=== PATIENT | male | born 1975 | race Caucasian/White ===

== ENCOUNTER 2019-03-25 10:21 | Inpatient (IN) | payer OTHER ==
[2019-03-25] MEDS ORDERED: Fentanyl 100 MCG/2 ML VIAL ONE ×3 (10:45→14:16)
[2019-03-25] MEDS ORDERED: Pantoprazole 40 MG VIAL ONE (12:10)
[2019-03-25] MEDS ORDERED: Glycopyrrolate 0.2 MG/ML 5 ML SYRINGE ONE (12:23)
[2019-03-25] MEDS ORDERED: diphenhydrAMINE 50 MG/ML VIAL ONE (12:23)
[2019-03-25] MEDS ORDERED: Succinylcholine Chloride 20 MG/ML 10 ml SYRINGE FS ONE (12:23)
[2019-03-25] MEDS ORDERED: PROPOFOL 200 MG/20 ML VIAL ONE (12:23)
[2019-03-25] MEDS ORDERED: PHENYLEPHRINE-NS 100 MCG/ML 10 ML SYRINGE ONE (12:23)
[2019-03-25] MEDS ORDERED: Rocuronium Bromide 10 MG/ML (10ML VIAL) ONE (12:23)
[2019-03-25] MEDS ORDERED: Lidocaine 2% PF 5 ML VIAL ONE (12:23)
[2019-03-25] MEDS ORDERED: Ondansetron PF 4 MG/2 ML Vial ONE (12:23)
[2019-03-25] MEDS ORDERED: Benzocaine 20% Spray 60 ML CAN ONE (13:17)
[2019-03-25] MEDS ORDERED: hydrALAZINE 20 MG/ML VIAL SLOW IVP PRN (13:34)
[2019-03-25] MEDS ORDERED: Ondansetron PF 4 MG/2 ML Vial IVP PRN ×2 (13:34→17:14)
[2019-03-25] MEDS ORDERED: Acetaminophen 1,000 MG in Premix Bag 1 BAG IVPB PRN (13:40)
[2019-03-25] MEDS ORDERED: Ondansetron HCl/PF 4 MG/2 ML Vial IVP PRN (13:44)
[2019-03-25] MEDS ORDERED: Promethazine HCl 25 MG/ML VIAL SLOW IVP PRN (13:44)
[2019-03-25] MEDS ORDERED: HYDROmorphone 2 MG/ML VIAL SLOW IVP PRN (13:44)
[2019-03-25] MEDS ORDERED: Meperidine HCl/PF 25 MG/ML VIAL SLOW IVP PRN (13:44)
--- NOTE | 2019-03-25 14:17 | RAD ---
EXAM: 2 views of the right humerus HISTORY: History of lytic lesion in the boners COMPARISON: None FINDINGS: 2 views of the right humerus shows no evidence of acute fracture or dislocation. No degener ative changes are seen. There is a lytic region in the midportion of the right humerus seen only on the internal rotation view measuring 2.7 cm in greatest dimension. No soft tissue swelling is present . IMPRESSION: Nonspecific lytic region in the midportion of the humerus
[2019-03-25] MEDS ORDERED: Sodium Chloride 0.9% (PF) 10 ML VIAL FS PRN (16:01)
[2019-03-25] MEDS: Lactated Ringer's 1,000 ML IV SCH ×2 (16:32→18:07)
[2019-03-25] MEDS ORDERED: Morphine 4 MG/ML VIAL SLOW IVP PRN (16:37)
[2019-03-25 16:41] VITALS: BMI 21.4
[2019-03-25] MEDS ORDERED: diphenhydrAMINE 50 MG/ML VIAL IM/IV PRN (17:14)
[2019-03-25] MEDS ORDERED: Zolpidem Tartrate 5 MG TAB PO PRN (17:14)
[2019-03-25] MEDS ORDERED: diphenhydrAMINE 25 MG CAP PO PRN (17:14)
[2019-03-25] MEDS ORDERED: Promethazine HCl 25 MG/ML VIAL IM PRN (17:14)
[2019-03-25] MEDS ORDERED: Naloxone HCl 0.4 mg/ml Vial IV PRN (17:14)
--- NOTE | 2019-03-25 17:18 | RAD ---
LEFT HUMERUS TWO VIEW: 03/25/19 HISTORY: Pain. COMPARISON: None. FINDINGS: There is a lytic lesion in the proximal left humeral metaphysis with cortical erosion medially. There is a large left upper lobe mass which is partially necrotic. IMPRESSION: Lytic lesion proximal left humeral metaphysis concerning for underlying metastatic disease giving the large left upper lobe mass. CT of chest may be beneficial. Code T Code LN POS: CET
[2019-03-25] MEDS: Morphine Sulfate 100 MG in Dextrose 5% in Water 98 ML IV SCH (17:58)
[2019-03-25] MEDS: Acetaminophen 1,000 MG in Premix Bag 1 BAG IVPB SCH (17:59)
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
[2019-03-25] MEDS: Enoxaparin Sodium 40 MG/0.4 ML SYRINGE SC SCH (20:22)
[2019-03-25] MEDS: Pantoprazole 40 MG VIAL IVP SCH (20:30)
--- NOTE | 2019-03-25 20:39 | OP ---
DATE OF PROCEDURE: 03/25/2019 PREOPERATIVE DIAGNOSES: Acute abdomen, left lower lobe 5-cm lytic lesion, right humeral lytic lesion, history of tobacco abuse. POSTOPERATIVE DIAGNOSES: Acute abdomen, left lower lobe 5-cm lytic lesion, right humeral lytic lesion, history of tobacco abuse. PROCEDURES PERFORMED: Exploratory laparotomy, Heineke-Mikulicz pyloroplasty, and omental patch. ANESTHESIA: General. Incisional VAC applied to be removed prior to discharge. Note; Dr. Barriga consulted intraoperatively and consent obtained from the patient's son, Edwin, for bronchoscopy intraoperative to evaluate the left lower lung lesion. DESCRIPTION OF PROCEDURE: The patient was taken to the operating room, where under general anesthesia, abdomen was clipped of hair, prepared with ChloraPrep, and draped in routine fashion. Local incision made above the umbilicus midline, carried down through the skin and subcutaneous tissue, midline fascia, and abdominal cavity sharply. There were inflammatory changes in the right upper quadrant, subhepatic. Thus, incision was extended cephalad, diagnosed a perforated proximal duodenal ulcer. Bookwalter retractor was used for exposure. Abdomen was irrigated. Perforation was identified. Post pyloric and longitudinal duodenostomy, pyloromyotomy performed, and duodenum mobilized with a Kita maneuver and visualizing vena cava and then, Heineke-Mikulicz pyloroplasty undertaken, closing the stomach transversely with continuous locking sutures of 2-0 Vicryl and outer layer with interrupted Lembert suture of 3-0 silk. Abdominal cavity was thoroughly irrigated with saline, irrigant evacuated. Hemostasis noted. Sponge and instruments counts were correct. Omental patch secured from lifting the omentum up, securing it to the pyloroplasty area with 3-0 silk interrupted sutures. Midline fascia was closed with #1 PDS. Skin and subcutaneous tissues were irrigated. Good hemostasis ensured. Skin approximated loosely with farhan. Incisional VAC applied. Dr. Moses Barriga then entered the room to perform a bronchoscopy. Job ID: [id number]
[2019-03-25] MEDS ORDERED: Pantoprazole 40 MG VIAL IVP SCH (21:00)
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
[2019-03-26] MEDS: Acetaminophen 1,000 MG in Premix Bag 1 BAG IVPB SCH ×3 (00:26→11:36)
[2019-03-26 05:40] LABS: #Lymphocytes 0.5 thou/uL (1.20-3.40); #Monocytes 0.2 thou/uL (0.11-0.59); %Basophils 0.5 % (0.0-1.0); %Eosinophils 0.5 % (0.0-10.0); %Lymphocytes 10.5 % (21.0-51.0); %Monocytes 3.2 % (0.0-10.0); %Neutrophils 85.3 % (42.0-75.0); MDiff Complete? YES; Macrocytosis SLIGHT = 6-15 cells (100X) (0-5/hpf); Mean Corpuscular HGB CONC 33.6 g/dL (32.0-36.0); Mean Corpuscular Hemoglobin 36.5 pg (27.0-31.0); Mean Platelet Volume 11.3 fL (7.4-10.4); Platelet Count 144 thou/uL (130-400); Platelet Morphology Comment Appears Adequate; RBC Distribution Width 15.6 % (11.5-14.5); Red Blood Cell (RBC) Count 2.74 mill/uL (4.70-6.10); White Blood Cell (WBC) Count 4.7 thou/uL (4.8-10.8)
[2019-03-26 05:42] LABS: ALT (SGPT) 9 U/L (8-55); AST (SGOT) 10 U/L (5-34); Albumin 2.7 g/dL (3.5-5.0); Alkaline Phosphatase 67 U/L (40-150); Anion Gap 12 mmol/L (10-20); BUN (Urea Nitrogen) 13 mg/dL (8.9-20.6); Bilirubin, Total 0.5 mg/dL (0.2-1.2); Calc. Creatinine Clearance 140 mL/min (70-130); Calcium 8.7 mg/dL (7.8-10.44); Carbon Dioxide 22 mmol/L (22-29); Chloride 106 mmol/L (98-107); Estimated GFR-MDRD Greater than 90; Globulin 2.5 g/dL (2.4-3.5); Glucose 100 mg/dL (70-105); Potassium 4.2 mmol/L (3.5-5.1); Protein, Total 5.2 g/dL (6.0-8.3); Sodium 136 mmol/L (136-145)
[2019-03-26] MEDS: Lactated Ringer's 1,000 ML IV SCH ×3 (05:45→22:46)
[2019-03-26] MEDS: Pantoprazole 40 MG VIAL IVP SCH ×2 (08:08→20:45)
--- NOTE | 2019-03-26 08:34 | OP ---
DATE OF PROCEDURE: 03/25/2019 INDICATIONS FOR PROCEDURE: Mr. Valencia is a 43-year-old male seen in the office a few days ago with a lung mass and a lytic humerus lesion. He presented with a perforated gastric ulcer. I was contacted by Dr. Mcadams to consider bronchoscopy because of a lung mass. The patient was already sedated at the end of the surgical procedure. DESCRIPTION OF PROCEDURE: Bronchoscope was introduced into the endotracheal tube. Consent had been obtained from the son by Dr. Mcadams prior to the procedure. The right lower lobe, right middle lobe, right upper lobe, left lower lobe, and left upper lobe were all well visualized. No endobronchial lesions were seen. Multiple segments of left lower lobe in the lingula were brushed. Orthopedic fluoroscopy has notoriously not been adequate for visualizing lung masses, especially when they are cavitary, so no fluoro was done. He tolerated the procedure well. One of his lateral segments in his left lower lobe revealed significant amount of bleeding that stopped quickly. This would lead me to believe that maybe the brush got into the lesion. The patient tolerated the procedure well. He was transferred to recovery room in stable condition. IMPRESSION: Metastatic lung cancer, likely stage IV. Hopefully, we can get his tissue diagnosis from the brushings, but may require additional procedures. Job ID: [id number]
[2019-03-26] MEDS ORDERED: Gadobenate Dimeglumine 529 MG/1 ML (20ML VIAL) ONE (10:30)
[2019-03-26] MEDS ORDERED: Morphine 2 MG/ML SYRINGE SLOW IVP SCH (11:15)
--- NOTE | 2019-03-26 12:29 | PRG ---
DATE OF SERVICE: 03/26/2019 SUBJECTIVE: Khang Valencia is in no distress. He is complaining of abdominal discomfort as expected. OBJECTIVE: VITAL SIGNS: He is afebrile. Heart rate 60, respiratory rate 16, oximetry is 94. LUNGS: Clear. HEART: Regular rhythm. ABDOMEN: Soft. IMPRESSION: 5 cm lung mass, status post bronchoscopy with no endobronchial lesions being identified. Brushings did elicit bleeding. One of his lateral segments was lower lobe, so hopefully we will have pathological results. They tell us what cell type. If we do not obtain a tissue diagnosis, then we will have to decide whether or not he needs a surgical procedure on his humerus or a tissue could probably be attained or a CT-guided biopsy of the wall of this cavitary lung mass. I have recommended a magnetic resonance imaging of his brain while he is down for an MRI of his humerus. I have also recommended a bone scan to make sure we are not missing any other possible bony metastatic disease. It may be a problem in the near future. I did explain to him likely that he has a lung malignancy that has spread to bone. Left away after tissue diagnosis. Job ID: [id number] [facility]
--- NOTE | 2019-03-26 15:26 | PRG ---
DATE OF SERVICE: 03/26/2019 SUBJECTIVE: Khang Valencia is a 43-year-old male patient, 1-day status post pyloroplasty, closure of perforated duodenal ulcer. The patient is doing well. His pain is well controlled with a CORK INSULATION SETTER pump. He is hoping to have his NG tube removed. Since the NG tube was placed in proper position, the patient has only had 70 mL out of his NG tube overnight. This morning, his white count is 4, hemoglobin 10. Basic metabolic profile normal. He is urinating well on his own. OBJECTIVE: LUNGS: Clear to auscultation. CARDIAC: Regular rate and rhythm. No murmur or gallop. ABDOMEN: Soft. He has an incisional wound VAC and his wound is closed with farhan. The plan is to remove the incision wound VAC prior to going home. The patient reports today that he was taking 20 to 25 Advil in 36-hour period because of shoulder pain from a shoulder injury. This hospitalization, Orthopedics have seen him regarding lytic lesions in both of his humeri, but these are not impending pathological and intervention is not warranted. The bronchoscopy that Dr. Barriga did yesterday reveals nonmalignant findings. I have discussed with Dr. Barriga and the patient will need a CT-guided left lung biopsy. We will plan that next week. ASSESSMENT AND PLAN: 1. Perforated duodenal ulcer. I have advised him to avoid NSAIDs. We will treat him with PPIs parenterally. We will remove his NG tube. He will stay n.p.o., taking ice chips only sparingly until GI function returns. I would advance him to clear liquids when there is evidence of GI function. 2. Left lower lobe lung mass 5 cm lytic with lytic lesions in both left and right humeri. Orthopedics have seen him and intervention is not warranted to prevent fracture. Bronchoscopy washings were negative. Plan for CT-guided left lung biopsy next week. 3. Tobacco abuse. Job ID: [id number]
--- NOTE | 2019-03-26 16:59 | NM ---
EXAM: NM Bone Scan STANDARD PROVIDED CLINICAL HISTORY: Lytic lesions on radiographs COMPARISON: Radiographs dated 03/25/2019 FINDINGS: 31.9 mCi technetium 99m labeled MDP was given intravenously. Three-hour delayed whole body planar ant erior and posterior imaging was performed in addition to additional anterior and posterior planar imaging of the thorax and humeri. There is abnormal increased radiotracer uptake seen within the left proximal and mid femur in the reg ion of the lytic change demonstrated on prior radiograph. There is increased radiotracer uptake seen within the right mid humeral diaphyseal region in the region of the lytic change described on pr ior radiograph. There is somewhat generalized increased radiotracer uptake involving the sternum, appearing mildly in homogeneous. There is radiotracer uptake seen involving both acromial clavicular joint regions. This is nonspecific. No additional abnormal radiotracer uptake is identified. IMPRESSION: 1. Abnormal radiotracer uptake within the areas of lytic change demonstrated on recent radiographs, c ompatible with an aggressive process such as metastatic disease or infection. 2. Sternal and acromioclavicular uptake are nonspecific but may also reflect bone lesions. Consider c hest CT correlation.
--- NOTE | 2019-03-26 18:38 | MRI ---
EXAM: MRI of the brain without and with contrast HISTORY: Lung mass and multiple lytic lesions. Evaluate for intracranial metastatic disease. COMPARISON: None TECHNIQUE: Multiplanar multisequence MR images were obtained of the brain without and with IV contras t. FINDINGS: The brain demonstrates normal signal intensity on all obtained sequences. No restricted diffusion. No abnormal enhancement. No hydronephrosis. No extra-axial fluid collection or intracranial hemorrhage. The expected flow voids are present. Corpus callosum, pituitary, and craniocervical junction are within normal limits. The calvarium and overlying soft tissues are unremarkable. A mucus retention cyst is seen in the left maxillary sinus. The other paranasal sinuses and mastoid air cells are well aerated. IMPRESSION: No evidence of acute intracranial abnormality.
[2019-03-26] MEDS: Piperacillin/Tazobactam 4.5 GM in Sodium Chloride 0.9% 100 ML IVPB SCH (18:44)
--- NOTE | 2019-03-26 18:48 | MRI ---
MRI LEFT HUMERUS WITH AND WITHOUT IV CONTRAST: 03/26/19 PROVIDED CLINICAL HISTORY: Left shoulder and arm pain, multiple lytic lesions. FINDINGS: There is mass-like abnormal signal present within the left proximal humeral metadiaphyseal region. Th is is comprised of diminished T1 signal intensity with respect to skeletal muscle, increased signal i ntensity on fluid sensitive sequences with respect to skeletal muscle and fairly diffuse contrast enh ancement. There is a central ovoid somewhat circumscribed area within this extensive abnormal medulla ry signal that measures about 5.7 cm in greatest craniocaudal dimension and entirely replaces the med ullary bone, producing scalloping of the endosteum without evidence for cortical breakthrough. There is conspicuous surrounding soft tissue edema and enhancement that does not appear mass-like. There is a central nonenhancing portion to this ovoid more focal signal abnormality. There is an approximately 2.2 cm rim enhancing fluid collection within the posterior deltoid muscle a ssociated with probable lytic change involving the adjacent acromion. There is reactive marrow edema seen within the acromion. There is patchy signal alteration on fluid sensitive sequences within the anterior deltoid muscle dis tally as well as within the posterior deltoid adjacent to the rim enhancing fluid collection. There is a small glenohumeral joint effusion without evidence for synovial enhancement. The acromiocl avicular joint appears unremarkable. There is a partially visualized thick walled cavitary mass present within the left lung, incompletely characterized on the basis of this study. IMPRESSION: 1. Prominent signal alteration involving the left proximal humeral metadiaphyseal region, the MR features of which are suggestive of an infectious process. There is also a separate fluid collection within the posterior deltoid muscle adjacent to the acromion suggesting an abscess. There are patchy foci of signal alteration within the deltoid musculature suggesting infectious myositis. The imaging appearance is atypical for metastatic disease. 2. Thick walled left lung cavitary mass incompletely visualized and incompletely evaluated. Livan mmend CT correlation. POS: CHRISTINE
[2019-03-26] MEDS: Enoxaparin Sodium 40 MG/0.4 ML SYRINGE SC SCH (20:45)
[2019-03-27] MEDS: Piperacillin/Tazobactam 4.5 GM in Sodium Chloride 0.9% 100 ML IVPB SCH ×5 (00:17→23:38)
--- NOTE | 2019-03-27 02:20 | PRG ---
DATE OF SERVICE: 03/27/2019 SUBJECTIVE: Mr. Valencia is a 43-year-old male who is postop day 1, status post pyloroplasty, closure of perforated duodenal ulcer. The patient reports doing good. Pain is well controlled with FIREWALL ADMINISTRATOR pump. NG tube was removed. The patient report no nausea or vomiting, even though he reports having a lot of burping. He is tolerating ice chips. He mobilizes well around the floor. He had some imaging studies this evening regarding to his mass on his lung. He is lying down in bed comfortably with no acute distress. He also had a bronchoscopy with Dr. Barriga and revealed nonmalignant findings. OBJECTIVE: VITAL SIGNS: Stable. LUNGS: Clear bilaterally. HEART: Regular rate and rhythm. ABDOMEN: Soft, nondistended, asymmetric, postop pain. EXTREMITIES: He also has frozen shoulder bilaterally in which Orthopedic seen him and we will plan to do lytic lesion in the future. Left shoulder pain, tender to touch with limited range of motion due to pain. EXTREMITIES: Neurovascular intact x4. NEUROLOGIC: No focal neurology deficits. PLAN: Continue supportive care. Continue bowel rest. The patient is to continue IV fluids and FIREWALL ADMINISTRATOR for pain. DVT gastritis prophylaxis. Continue working with PT/OT. Encourage walking for bowel return and function. Advance the patient's diet when bowel function return. Job ID: [id number]
[2019-03-27] MEDS: Lactated Ringer's 1,000 ML IV SCH ×2 (05:26→13:50)
[2019-03-27] MEDS: Pantoprazole 40 MG VIAL IVP SCH ×2 (08:21→20:02)
--- NOTE | 2019-03-27 11:51 | PRG ---
DATE OF SERVICE: 03/27/2019 SUBJECTIVE: He is awake and alert. No complaints. PHYSICAL EXAMINATION: VITAL SIGNS: Temperature 98.5, pulse 70, respirations 16, O2 saturation 95% on room air, blood pressure 112/75. HEENT: Unremarkable. NECK: No adenopathy or JVD. LUNGS: Soft wheezing bilaterally. CARDIAC: S1 and S2. Regular. ABDOMEN: Soft. EXTREMITIES: No edema. ASSESSMENT: 1. Lung mass. 2. Chronic obstructive pulmonary disease. PLAN: Awaiting tissue. Continue nebulization treatments and oxygen. Job ID: [id number]
--- NOTE | 2019-03-27 15:55 | PRG ---
DATE OF SERVICE: 03/27/2019 SUBJECTIVE: The patient is currently on the surgical floor. He is postop day #1, status post pyloroplasty and closure of perforated duodenal ulcer. The patient remains n.p.o. His pain is being controlled with a HOME DECORATOR pump. He denies nausea or vomiting. He did have his NG tube removed yesterday, but the plan is for him to be allowed liquids at the earliest tomorrow, but more likely on Friday per his primary surgeon's plan. OBJECTIVE: VITAL SIGNS: Temperature is 98.5, heart rate 70, blood pressure 110/75, respirations 16, and oxygen saturation 93% on room air. GENERAL: The patient is resting comfortably in bed. He is awake, alert, and oriented x3. HEENT: Unremarkable. LUNGS: Clear to auscultation with good inspiratory and expiratory effort. The patient did have some expiratory wheezing intermittently. ABDOMEN: Soft, flat, nontender with no active bowel sounds at this time. LABORATORY AND DIAGNOSTIC DATA: There are no labs or radiographs reviewed this morning. ASSESSMENT: Status post exploratory laparotomy, pyloroplasty, and omental patch. PLAN: Plan will be to continue n.p.o. status until bowel function returns. Pain management with HOME DECORATOR. Encourage out of bed and ambulation, pulmonary toilet, gastritis and mechanical VTE prophylaxis. The patient was evaluated this morning with Dr. Alberto. Job ID: [id number]
[2019-03-27] MEDS: Enoxaparin Sodium 40 MG/0.4 ML SYRINGE SC SCH (20:02)
[2019-03-27] MEDS: Morphine Sulfate 100 MG in Dextrose 5% in Water 98 ML IV SCH (23:54)
[2019-03-28] MEDS: Lactated Ringer's 1,000 ML IV SCH ×4 (00:35→21:23)
--- NOTE | 2019-03-28 00:48 | PRG ---
DATE OF SERVICE: 03/28/2019 SUBJECTIVE: Mr. Valencia is a 43-year-old male postoperative day #1 status post pyloroplasty and closure of perforation of duodenal ulcer. The patient remained n.p.o. Pain control with E COMMERCE WEB DEVELOPER pump. Pain is well controlled. Denies nausea or vomiting. He denies having gas or bowel movement. He developed no fever or shortness of breath. OBJECTIVE: GENERAL: The patient is lying down in bed, comfortable with no acute distress. VITAL SIGNS: Stable. HEART: Regular rate and rhythm. LUNGS: Clear bilaterally. ABDOMEN: Soft, nondistended with scattered bowel sounds. PLAN: Will be to continue n.p.o. with E COMMERCE WEB DEVELOPER pain medication. Continue supportive care. Continue deep venous thrombosis and gastritis prophylaxis. We will await for his bowel function to normalize. Job ID: [id number]
[2019-03-28] MEDS: Piperacillin/Tazobactam 4.5 GM in Sodium Chloride 0.9% 100 ML IVPB SCH ×3 (05:06→17:23)
[2019-03-28] MEDS: Pantoprazole 40 MG VIAL IVP SCH ×2 (08:09→21:32)
[2019-03-28] MEDS ORDERED: CEFAZOLIN 2 GM in Premix Bag 1 BAG IVPB SCH (09:30)
--- NOTE | 2019-03-28 12:33 | PRG ---
DATE OF SERVICE: 03/28/2019 SUBJECTIVE: He seems to be doing well. He had no acute complaints. OBJECTIVE: VITAL SIGNS: Temperature 99.4, pulse 64, respirations 16, O2 saturation 95%, and blood pressure 115/74. HEENT: Unremarkable. NECK: No adenopathy or JVD. LUNGS: Clear. CARDIAC: S1 and S2 regular. ABDOMEN: Soft, nontender. Normoactive bowel sounds. EXTREMITIES: No edema. ASSESSMENT: Lung mass. PLAN: Await biopsy results. Job ID: [id number]
--- NOTE | 2019-03-28 16:55 | PRG ---
DATE OF SERVICE: 03/28/2019 SUBJECTIVE: The patient is currently on the surgical floor. He is postop day #2, status post pyloroplasty and closure of perforated duodenal ulcer. The patient remains n.p.o. His pain is being controlled with a VICE PRESIDENT OF TALENT MANAGEMENT pump. He denies nausea or vomiting. He has been out of bed once. He is of note awaiting to undergo bone biopsy of left proximal humerus tomorrow and likely biopsy of lung mass. So the patient will remain n.p.o. for this purpose in addition to his postoperative ileus. OBJECTIVE: VITAL SIGNS: Temperature is 99.2, heart rate 69, blood pressure 106/72, respirations 16, and oxygen saturation is 96% on room air. GENERAL: The patient is resting comfortably in bed. He is awake, alert, and oriented x3. HEENT: Unremarkable. LUNGS: Clear to auscultation with scant bilateral wheezes. HEART: Regular rate and rhythm. ABDOMEN: Soft, flat, nontender without bowel sounds at this time. LABORATORY AND DIAGNOSTIC DATA: There are no labs or radiographs reviewed this morning. ASSESSMENT: Status post exploratory laparotomy, pyloroplasty and omental patch. PLAN: Plan will be to continue n.p.o. status due to his ileus and schedule procedure for tomorrow. We will continue pain management with VICE PRESIDENT OF TALENT MANAGEMENT. Encourage out of bed, ambulation, and other supportive care per the primary and other services. Job ID: [id number]
[2019-03-28] MEDS: Enoxaparin Sodium 40 MG/0.4 ML SYRINGE SC SCH (21:30)
[2019-03-29] MEDS: Piperacillin/Tazobactam 4.5 GM in Sodium Chloride 0.9% 100 ML IVPB SCH ×5 (00:19→23:08)
--- NOTE | 2019-03-29 01:16 | PRG ---
DATE OF SERVICE: 03/29/2019 SUBJECTIVE: Mr. Valencia is a 43-year-old male, who is postop day 2, status post pyeroplasty and closure of perforated duodenal ulcer. The patient remained n.p.o. and pain control, GEODETIC COMPUTATOR pump. He denied nausea or vomiting. He denied any gas or bowel movement. PHYSICAL EXAMINATION: VITAL SIGNS: Stable. GENERAL: The patient is lying down in bed, comfortable with no acute distress. LUNGS: Clear bilaterally. HEART: Regular rate and rhythm. ABDOMEN: Soft, nondistended, and no bowel sounds present. PLAN: Will be continue n.p.o. due to his ileus and schedule procedure for tomorrow regard to his lung mass. He will continue pain management with GEODETIC COMPUTATOR. Job ID: [id number]
[2019-03-29 05:41] LABS: #Lymphocytes 0.4 thou/uL (1.20-3.40); #Monocytes 0.3 thou/uL (0.11-0.59); #Neutrophils 3.8 thou/uL (1.40-6.50); %Eosinophils 0.7 % (0.0-10.0); %Lymphocytes 9.4 % (21.0-51.0); %Monocytes 7.2 % (0.0-10.0); %Neutrophils 82.7 % (42.0-75.0); Hemoglobin 8.8 g/dL (14.0-18.0); Mean Corpuscular HGB CONC 32.7 g/dL (32.0-36.0); Mean Corpuscular Hemoglobin 34.7 pg (27.0-31.0); Platelet Count 147 thou/uL (130-400); RBC Distribution Width 15.5 % (11.5-14.5); Red Blood Cell (RBC) Count 2.52 mill/uL (4.70-6.10); White Blood Cell (WBC) Count 4.6 thou/uL (4.8-10.8)
[2019-03-29 05:46] LABS: INR-International Normal Ratio 1.2; Prothrombin Time 14.8 SEC (12.0-14.7)
[2019-03-29 05:56] LABS: Anion Gap 13 mmol/L (10-20); BUN (Urea Nitrogen) 9 mg/dL (8.9-20.6); Calc. Creatinine Clearance 134 mL/min (70-130); Calcium 8.8 mg/dL (7.8-10.44); Carbon Dioxide 24 mmol/L (22-29); Chloride 99 mmol/L (98-107); Estimated GFR-MDRD Greater than 90; Glucose 83 mg/dL (70-105); Potassium 3.6 mmol/L (3.5-5.1); Sodium 132 mmol/L (136-145)
[2019-03-29] MEDS: Lactated Ringer's 1,000 ML IV SCH ×3 (06:36→21:57)
[2019-03-29] MEDS: Pantoprazole 40 MG VIAL IVP SCH ×2 (07:55→21:53)
[2019-03-29] MEDS: Morphine Sulfate 100 MG in Dextrose 5% in Water 98 ML IV SCH (09:09)
--- NOTE | 2019-03-29 11:42 | PRG ---
DATE OF SERVICE: 03/29/2019 SUBJECTIVE: Khang Valencia is doing well today. He has tolerated his NG tube out last 3 days. He has not had any nausea or vomiting. However, he has had belching. He has not experienced a bowel movement or passed flatus. Today, Orthopedics is planning ORIF of his left humerus due to impending pathological fracture from metastatic lung cancer most likely. Await tissue diagnosis. His CT-guided biopsy of lung was canceled. OBJECTIVE: VITAL SIGNS: 99 degrees, 82, and 109/67. LUNGS: Clear to auscultation. CARDIAC: Regular rate and rhythm without murmur or gallop. ABDOMEN: Soft and nontender. Incisional wound VAC in place, will be removed tomorrow. EXTREMITIES: Unremarkable. LABORATORY DATA: White count 4.6 and hemoglobin 8.8. Basic metabolic profile unremarkable. ASSESSMENT AND PLAN: 1. Anemia, medical and mostly. Continue to observe. No transfusion is necessary. 2. Lung metastases to both humerus. Open reduction and internal fixation left humerus to prevent fracture. Oncology consultation once tissue diagnosis obtained. 3. Tobacco use. 4. Left lower lobe lung mass 5 cm lytic lesion. 5. Bilateral humeral lytic lesions. Job ID: [id number]
[2019-03-29] MEDS ORDERED: Bupivacaine PF 0.5% 30 ML VIAL ONE (12:26)
[2019-03-29] MEDS ORDERED: Fentanyl 100 MCG/2 ML VIAL ONE ×3 (12:57→15:01)
[2019-03-29] MEDS ORDERED: Rocuronium Bromide 10 MG/ML (10ML VIAL) ONE (13:45)
[2019-03-29] MEDS ORDERED: Lidocaine 1% PF 5 ML VIAL ONE (13:45)
[2019-03-29] MEDS ORDERED: PROPOFOL 200 MG/20 ML VIAL ONE (13:45)
[2019-03-29] MEDS ORDERED: Meperidine HCl/PF 25 MG/ML VIAL ONE (14:28)
[2019-03-29] MEDS ORDERED: PACU-Morphine 4MG/ML VIAL SLOW IVP PRN (14:50)
[2019-03-29] MEDS ORDERED: Promethazine HCl 25 MG/ML VIAL IM PRN (14:50)
[2019-03-29] MEDS ORDERED: Promethazine HCl 25 MG/ML VIAL SLOW IVP PRN (14:50)
[2019-03-29] MEDS ORDERED: Ondansetron HCl/PF 4 MG/2 ML Vial IVP PRN (14:50)
[2019-03-29] MEDS ORDERED: Morphine 2 MG/ML SYRINGE ONE ×4 (15:13→16:35)
--- NOTE | 2019-03-29 16:10 | RAD ---
LEFT HUMERUS TWO VIEWS: HISTORY: ORIF. COMPARISON: None. FINDINGS: Satisfactory appearance of intramedullary nail placement through the left femur. IMPRESSION: Satisfactory postoperative appearance. POS: CET
[2019-03-29] MEDS: Enoxaparin Sodium 40 MG/0.4 ML SYRINGE SC SCH (21:53)
[2019-03-29] MEDS: CEFAZOLIN 2 GM in Premix Bag 1 BAG IVPB SCH (21:57)
[2019-03-30] MEDS: Morphine Sulfate 100 MG in Dextrose 5% in Water 98 ML IV SCH ×2 (04:16→16:07)
[2019-03-30] MEDS: Piperacillin/Tazobactam 4.5 GM in Sodium Chloride 0.9% 100 ML IVPB SCH ×4 (05:37→23:13)
[2019-03-30] MEDS: Lactated Ringer's 1,000 ML IV SCH ×4 (05:42→20:45)
[2019-03-30] MEDS: CEFAZOLIN 2 GM in Premix Bag 1 BAG IVPB SCH ×2 (06:34→14:02)
[2019-03-30] MEDS: Pantoprazole 40 MG VIAL IVP SCH ×2 (08:31→20:09)
--- NOTE | 2019-03-30 10:37 | PRG ---
DATE OF SERVICE: 03/30/2019 SUBJECTIVE: Mr. Valencia is doing well today. He underwent ORIF of his left humerus for impending fracture pathological from metastasis. Orthopedics tells me that an immediate interpretation of the specimen yesterday suggested squamous cell carcinoma. He has left lower lobe lytic lesion [address] Barriga is following for this. His bronchoscopy washings were negative. Today, he is belching, but not passing any flatus or stool. OBJECTIVE: VITAL SIGNS: 98.2 degrees, 69, and 139/89. LUNGS: Clear to auscultation. CARDIAC: Regular rate and rhythm without murmur or gallop. ABDOMEN: Soft, flat, and nondistended. Wound looks good. His incisional VAC was removed. His wound looks very good. There is no indication for infection. EXTREMITIES: Unremarkable. LABORATORY DATA: This morning, there is no laboratories obtained. ASSESSMENT AND PLAN: 1. Perforated duodenal ulcer. Await bowel function. Continue IV fluids. 2. Left lower lobe lung mass, probably squamous cell carcinoma by an immediate interpretation, but final pathology pending. Metastases to both humerus status post open reduction and internal fixation of left humerus for impending pathological fracture, Dr. Michelle. Mobility per him. 3. Await gastrointestinal function prior to advancing diet. Continue liquids. 4. Await Oncology opinion. If he needs MediPort that could be placed tomorrow in this hospitalization nor could wait till another time. We will discuss with Oncology at their opinion. MRI scan of the brain is negative for metastasis. Bone scan results noted. Job ID: [id number]
[2019-03-30] MEDS: Enoxaparin Sodium 40 MG/0.4 ML SYRINGE SC SCH (20:08)
--- NOTE | 2019-03-30 21:08 | OP ---
DATE OF PROCEDURE: 03/29/2019 PREOPERATIVE DIAGNOSIS: Left proximal humerus pathologic fracture. POSTOPERATIVE DIAGNOSIS: Left proximal humerus pathologic fracture. PROCEDURES PERFORMED: 1. Intramedullary nail stabilization of left humerus. 2. Biopsy of left proximal humerus lytic lesion. ANESTHESIA: General. BARREL MARKER: Brynn Deluca PA-C ESTIMATED BLOOD LOSS: 50 mL. IMPLANTS: Synthes system was used with a 7 x 240 mm humeral nail with two cross-lock screws. COMPLICATIONS: None. DRAINS: None. SPECIMEN: Marrow cavity sampling of lytic lesion from left humerus sent to Pathology for both frozen and permanent sections. INDICATIONS: Mr. Valencia is a 43-year-old gentleman, who two months ago injured the left arm with relatively minor trauma. He has had on again and off again pain at the left shoulder and left upper humerus over the last two months. The patient was taking large quantities of ibuprofen and eventually developed bleeding ulcer. He was admitted and his part of the workup was found to have a lesion on his chest x-ray, as well as a lytic lesion of the left proximal humerus and lytic lesion of the midshaft diaphysis of the right humerus. The patient now scheduled for stabilization of this impending pathologic fracture of the left humerus, as well as biopsy of the lytic lesion in hopes of obtaining a definitive diagnosis regarding this bone lesion as well as its potential connection to his long tumor. Informed consent has been obtained. I believe all questions answered. DESCRIPTION OF PROCEDURE: The patient was brought to the operating room and a time-out performed followed by induction of general anesthesia. Next, he was positioned in a semi-beach chair position. Then, a sterile prep and drape was performed of left upper extremity. Next, a lateral incision was made just posterior to the bicipital groove. After skin was sharply incised, dissection was carried down bluntly through the deltoid musculature. A small portion of the subdeltoid bursa was excised exposing the underlying supraspinatus tendon as it inserted on the greater tuberosity. This structure was incised in line with its fibers exposing the tuberosity and then blunt dissection carried down to the base of the tuberosity at the margin of the articular surface. A threaded guidewire was then inserted at the starting point and then the starting reamer passed over the guidewire to further open the proximal humerus for nail placement. Next, under C-arm guidance, a pituitary rongeur was passed down the starting point to the level of the lytic lesion of the proximal humerus. Multiple samples were removed from this site that showed a white tissue not consistent with marrow fat or any normal osseous structure. Multiple samples were removed and then once felt to be an acceptable sample size, this was sent to Pathology for frozen section to confirm appropriate sampling as well as permanent sections for hopeful diagnosis. Next, the shoulder was thoroughly lavaged with normal saline and then a 7 x 240 mm nail was passed down the shaft of the humerus. This was then cross locked proximally initially with two screws. However, the proximal most of these two screws was found to have very marginal bone purchase and this was subsequently removed. Additional incision was made anterior at the distal upper arm. Blunt dissection carried down to the humerus and then freehand technique was used to cross lock the nail. At the completion of this, the nail was found to be of appropriate length and position with proximal and distal cross-lock screw appropriately positioned. The wounds again irrigated with bulb syringe and then closed in layers proximally with 0 Vicryl for the supraspinatus and deltoid fascia 2-0 Vicryl subcutaneously and farhan for the skin. [place] were used for the distal cross-lock screw site. Xeroform gauze and tape dressing was then applied to the arm. The patient was placed in a sling and transferred to recovery room in stable condition. There were no complications. The patient tolerated the procedure well. Job ID: [id number]
--- NOTE | 2019-03-30 21:49 | CON ---
DATE OF CONSULTATION: REASON FOR CONSULTATION: Metastatic disease. HISTORY OF PRESENT ILLNESS: Mr. Valencia is a 43-year-old male, who presented to the emergency room with acute onset of abdominal pain. He had free intraabdominal air and was taken to surgery by Dr. Mcadams. He was noted to have a perforated ulcer. He underwent exploratory laparotomy with pyloroplasty. The patient had been diagnosed with a 5 cm left lower lung lesion approximately 2 weeks prior, was seen by Dr. Barriga, scheduled for an outpatient PET. During his exploratory laparotomy, Dr. Barriga performed a bronchoscopy. Unfortunately, pathology was negative. The patient also had a left upper extremity pain. He underwent imaging of his left shoulder. There was a 2.2 cm area consistent with a lytic lesion. He underwent prophylactic nailing. His pain is currently controlled, and he is slowly having his diet advanced. We were asked to see the patient regarding diagnosis. The patient states he has lost 40 pounds over the past year and a half, but none in the last 2 to 3 months. His weight loss is due to a change in appetite and working outside. PAST MEDICAL HISTORY: None. PAST SURGICAL HISTORY: None. ALLERGIES: NO KNOWN DRUG ALLERGIES. HOME MEDICATIONS: Nonsteroidals. FAMILY HISTORY: Grandfather and aunt had lung cancer. SOCIAL HISTORY: He is , has 5 grown children. A 10 pack-year history of smoking. No alcohol use. No illicit drug use. REVIEW OF SYSTEMS: GENERAL: No fever, chills, or night sweats. EYES: No blurred or double vision. ENT: No pain hoarseness, sore throat,or dysphagia. CV: No chest pain, palpitations, or syncope. RESPIRATORY: No shortness of breath, dyspnea on exertion, or orthopnea. GI: No nausea, vomiting, diarrhea, or constipation. Positive for abdominal pain. : No dysuria or hematuria. MUSCULOSKELETAL: Positive for shoulder pain. SKIN: No rash or pruritus. HEMATOLOGIC: No bruising, bleeding, or clotting. NEUROLOGIC: No headache, numbness, tingling, or seizure activity. PSYCHIATRIC: No anxiety or depression. PHYSICAL EXAMINATION: VITAL SIGNS: Temperature is 98.4, pulse is 79, respiratory rate 20, blood pressure is 143/76. He is 97% on room air. GENERAL: This is a well-developed, well-nourished male, in no acute distress. HEENT: Normocephalic and atraumatic. Pupils are equal and reactive to light. NECK: Supple. CV: Regular rate and rhythm. LUNGS: Clear anterior. ABDOMEN: Soft and nontender. Bowel sounds are positive. EXTREMITIES: He has a dressing to his left shoulder. There is no edema. SKIN: No rash. HEMATOLOGIC: No petechiae or purpura. NEUROLOGIC: Nonfocal. PSYCHIATRIC: He is alert, oriented, and appropriate. PERTINENT LABORATORY DATA AND X-RAYS: Current WBCs 4.6, hemoglobin 8.8, hematocrit 26.8, platelet count is 147,000, 82% neutrophils, 9% lymphocytes. PT is 14.8, INR is 1.2. Sodium 132, potassium 3.6, chloride 99, CO2 is 24, BUN is 9, creatinine 0.67, glucose 83, calcium 8.8, bilirubin 0.5. AST is 10, ALT is 9, alkaline phosphatase is 67. Serum total protein 5.7, albumin 2.7, and globulin 2.5. Brain MRI showed no evidence of metastatic disease. Bone scan showed lesion in the left proximal and mid femur, right mid humeral diaphyseal region. ASSESSMENT: Metastatic lung cancer, possibly squamous cell carcinoma with bone lesions. DISCUSSION: The patient is a candidate for chemotherapy. He may need a MediPort placed once final path is seen. We will send off tissue for mutational studies. Case has been discussed with Dr. Knight. Thank you for the consult on this unfortunate gentleman. Job ID: [id number]
[2019-03-31] MEDS: Piperacillin/Tazobactam 4.5 GM in Sodium Chloride 0.9% 100 ML IVPB SCH ×5 (06:03→20:41)
[2019-03-31] MEDS: Lactated Ringer's 1,000 ML IV SCH ×3 (06:03→16:43)
[2019-03-31] MEDS: Morphine Sulfate 100 MG in Dextrose 5% in Water 98 ML IV SCH ×2 (08:46→23:03)
[2019-03-31] MEDS: Pantoprazole 40 MG VIAL IVP SCH ×2 (08:59→20:40)
[2019-03-31 09:11] LABS: Fungus Stain Final report (.)
[2019-03-31] MEDS ORDERED: MD-Gastroview 120 ML BOT ONE (11:23)
--- NOTE | 2019-03-31 17:05 | PRG ---
DATE OF SERVICE: 03/31/2019 SUBJECTIVE: Khang Valencia is doing well today. OBJECTIVE: VITAL SIGNS: Temperature 98.8 degrees, pulse 78, and blood pressure 152/91. LUNGS: Clear to auscultation. CARDIAC: Regular rate and rhythm without murmur or gallop. ABDOMEN: Soft and nontender. Wound looks good. EXTREMITIES: Unremarkable. LABORATORY DATA: None. The patient had ordered an upper GI small-bowel follow-through and assess gastric emptying. Today, he has passed a small amount of flatus. He did have upper GI and there was delayed emptying. After 1-1/2 hours and him rotating to his right side, he did have contrast progress into the duodenum. 3-hour film shows some stagnant contrast in stomach, but it does progress in the GI tract further. ASSESSMENT AND PLAN: 1. Status post perforated ulcer. Gastric emptying is delayed. We will start him on Reglan IV. Start clear liquids as I feel we need to go slow. We will avoid carbonated beverages. He has good mobility level. Await better GI emptying. Advance diet slowly. 2. 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 Oncology has seen him. He may need a MediPort in the future. Job ID: [id number]
--- NOTE | 2019-03-31 18:06 | RAD ---
Small bowel series: HISTORY: 43-year-old male with abdominal pain. No bowel movement.: FINDINGS: Nursing Specialist view demonstrates midline skin farhan. Large amount of bowel gas throughout nondilated transve rse colon, splenic flexure, and descending colon. No evidence of small bowel dilation. Oral contrast material, presumably Gastrografin, is seen in the stomach, and only reaches the second stage of the duodenum in one hour. At 1.5 hours, it has reached several jejunal loops in the left upper quadrant. Slow progress at 3 hours. At 5 hours, the contrast fills the ascending colon. IMPRESSION: 1. No small bowel obstruction. 2. Probable postoperative ileus.
[2019-03-31] MEDS: Enoxaparin Sodium 40 MG/0.4 ML SYRINGE SC SCH (20:40)
[2019-04-01] MEDS: Lactated Ringer's 1,000 ML IV SCH (04:35)
[2019-04-01] MEDS: Piperacillin/Tazobactam 4.5 GM in Sodium Chloride 0.9% 100 ML IVPB SCH ×2 (04:35→09:41)
[2019-04-01] MEDS: Acetaminophen/Codeine 30-300mg Tablet PO SCH ×2 (09:00→13:12)
--- NOTE | 2019-04-01 09:06 | RAD ---
XR Abdomen 2 View HISTORY: Abdominal pain. History of duodenal ulcer repair. Follow-up with small bowel follow-through performed yesterday. COMPARISON: None. FINDINGS: The bowel gas pattern appears nonobstructed. The contrast from the previous small bowel fol low-through is now almost entirely within the colon. No free air demonstrated. Surgical farhan are noted. IMPRESSION: The contrast from the previous small bowel follow-through is now almost entirely within t he colon. No free air.
[2019-04-01] MEDS ORDERED: traMADol HCl 50 MG TAB PO PRN ×2 (09:18)
[2019-04-01] MEDS ORDERED: Acetaminophen 500 MG TAB PO PRN (09:18)
[2019-04-01] MEDS: Pantoprazole 40 MG VIAL IVP SCH (09:41)
--- NOTE | 2019-04-01 10:34 | PDOC.MOPN ---
Interval History: taking clear liquids, pain improving. - Vital Signs Vital Signs: Vital Signs (12 hours) Temp Pulse Resp BP Pulse Ox 04/01/19 04:31 98.5 F 66 16 143/79 H 94 L 04/01/19 00:15 98.0 F 76 16 126/71 95 Weight Admit Weight 145 lb Weight 145 lb - Physical Exam General: Alert, Oriented x3, No acute distress HEENT: Atraumatic, PERRLA, EOMI, Mucous membr. moist/pink Lungs: Clear to auscultation, Normal air movement Cardiovascular: Regular rate, Normal S1, Normal S2, No murmurs, Gallops, Rubs Abdomen: Normal bowel sounds, Soft, No tenderness, No hepatospenomegaly, No masses Extremities: No clubbing, No cyanosis, No edema, Normal pulses, No tenderness/ swelling, Other (left shoulder dressing intact) Skin: No rashes, No breakdown, No significant lesion Neurological: Normal gait, Normal speech, Strength at 5/5 X4 ext, Normal tone, Sensation intact, Cranial nerves 3-12 NL, Reflexes 2+ Psych/Mental Status: Mental status NL, Mood NL - Labs Result Diagrams: 03/29/19 04:57 03/29/19 04:57 Status: lab reviewed by me A/P - Problem (1) Lung cancer metastatic to bone Current Visit: Yes Code(s): C34.90 - MALIGNANT NEOPLASM OF UNSP PART OF UNSP BRONCHUS OR LUNG; C79.51 - SECONDARY MALIGNANT NEOPLASM OF BONE Status: Acute - Plan Plan: Patient will have mediport placed as outpatient. Follow-up Dr. Knight 04/12 @ 2:45pm
--- NOTE | 2019-04-01 11:58 | PRG ---
DATE OF SERVICE: 04/01/2019 SUBJECTIVE: Khang Valencia surprisingly looks good. He has minimal shoulder pain. He still has pain pump. He had a very large bowel movement early this morning while he was asleep. OBJECTIVE: LUNGS: Clear. HEART: Regular rhythm. ABDOMEN: Soft. Small bowel follow-through yesterday just showed an ileus. IMPRESSION: 1. Ileus, probably clinically resolved. 2. Status post gastrointestinal bleed secondary to nonsteroidals and ulcer with perforation. 3. Lung mass. 4. Brief history of smoking for approximately 10 years. 5. Humerus mass, it is overwhelmingly likely be metastatic squamous cell from the lung, proven on bone biopsy. PLAN: Still on IV antimicrobial therapy. I would think . I have recommended starting on him on around the clock Tylenol 3. I talked to the Anesthesia Pain Service about discontinuing pain drip. If Surgery agrees, then we can consider discharging him home for outpatient followup with Radiation/Oncology tomorrow. I tried to answer all of his questions. He has my phone number. I will be happy to help him. Job ID: [id number]
--- NOTE | 2019-04-01 12:14 | PDOC.MOPN ---
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 No other complaints. - Vital Signs Vital Signs: Vital Signs (12 hours) Temp Pulse Resp BP BP Pulse Ox 04/01/19 08:26 97.5 F L 71 16 111/71 92 L 04/01/19 08:00 92 L 04/01/19 04:31 98.5 F 66 16 143/79 H 94 L 04/01/19 00:15 98.0 F 76 16 126/71 95 Weight Admit Weight 145 lb Weight 145 lb - Physical Exam General: Alert, Oriented x3, Cooperative HEENT: Atraumatic Lungs: Clear to auscultation Cardiovascular: Regular rate Extremities: Other (LUE in sling) Skin: No breakdown Neurological: Cranial nerves 3-12 NL Psych/Mental Status: Mental status NL - Labs Result Diagrams: 03/29/19 04:57 03/29/19 04:57 A/P - Problem (1) Lung cancer metastatic to bone Current Visit: Yes Code(s): C34.90 - MALIGNANT NEOPLASM OF UNSP PART OF UNSP BRONCHUS OR LUNG; C79.51 - SECONDARY MALIGNANT NEOPLASM OF BONE Status: Acute - Plan Plan: I d/w the patient the diagnosis of SqCC of lung. He has bone mets and will require Keytruda +/- Chemotherapy pending PDL1 status. I will send his path for [facility] testing as well given his limited smoking history. Dr. Mcadams will place a mediport as outpatient. I will ask Dr. Syed to see him regarding palliative XRT to his B/L [facility]. I will f/u with him in clinic. He will need to heal from his stomach surgery prior to initiating chemotherapy.
[2019-04-01 12:51] VITALS: BP 109/72; TEMP 98.2
--- NOTE | 2019-04-01 12:58 | CON ---
DATE OF CONSULTATION: 04/01/2019 REASON FOR CONSULTATION: Mr. 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 I have been asked to see him regarding this bone metastasis. HISTORY OF PRESENT ILLNESS: Mr. Valencia was working and began having pain in his left arm. He was seen in an outside emergency room and apparently had an x-ray, which showed not only a lytic lesion in the left humerus, but also a left lower lobe lung mass. He did have a CT scan done at an outside institution. He was seen by Dr. Barriga, who recommended a PET scan. Before the PET scan could be obtained, he returned to the emergency room because of abdominal pain and he was found to have a perforated ulcer. He underwent surgical repair of the perforated ulcer by Dr. Mcadams. A bronchoscopy was performed at the same time, which was negative. He had a bone scan, which showed uptake in the proximal mid left humerus as well as in the mid right humerus. No other lesion was identified. He had an MRI of the brain, which was negative. Plain film x-rays suggested a large lytic lesion in the left humerus. Therefore, Dr. Michelle did prophylactic nailing of the left humerus to prevent pathological fracture. Biopsy from the humeral lesion returned the diagnosis of squamous cell carcinoma. Thus, it is felt that he has a stage IV lung cancer. He has been recovering from both surgeries. He has seen Vandana Mathew/ Dr. Knight and I have now been asked to see him to discuss his options with radiation therapy. Other than pain in his left humerus area, he denies any other areas of pain. He has no shortness of breath at this time. Apparently, he did lose 40 pounds over the past year, but none in the last several months. The 40 pounds weight loss is attributed to diet and working. He has no cough or hemoptysis. He voices no other complaints. PAST MEDICAL HISTORY: 1. Lung cancer as mentioned above. 2. He denies other medical or surgical problems. MEDICATIONS ON ADMISSION: None. ALLERGIES: NO KNOWN MEDICAL ALLERGIES. SOCIAL HISTORY: He has smoked 1/2 pack per day for more than 10 years. He is . He has no alcohol use. 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 FAMILY HISTORY: His mother is still living at age 56. There is no history of cancer in his mother or father. Apparently, he had a grandfather and an aunt with lung cancer. REVIEW OF SYSTEMS: A 12-system review of systems was performed. He has had diarrhea for the past 24 hours. He still has some abdominal soreness from the surgery. He denies any chest pain. Remainder of review of system is otherwise negative. PHYSICAL EXAMINATION: VITAL SIGNS: Height 5 feet 9 inches, weight 145 pounds. Blood pressure is 143/ 79, pulse is 66, respirations 16, temperature 98.5, and O2 saturation is 94% on room air. CONSTITUTIONAL: He is alert and oriented and in no apparent distress. He is well developed and well nourished. Karnofsky performance status currently is 80%. EYES: Pupils equal, round, and reactive to light. Extraocular movements are intact. ENT: Oral cavity and oropharynx without lesion or erythema. Palate elevates symmetrically. Gingiva is intact. NECK: Supple without cervical or supraclavicular adenopathy. No thyromegaly. Larynx midline. LUNGS: Breathing nonlabored. Clear to auscultation. HEART: Regular rate and rhythm without murmur. No lower extremity edema. LYMPHATIC: No right axillary adenopathy or inguinal adenopathy bilaterally. Left axilla was unable to be examined because of the tenderness with movement of the shoulder, which is currently in a sling. ABDOMEN: Midline laparotomy incision is healing well. Mild tenderness on palpation. No mass palpable. SKIN: Without rash or purpura. NEUROLOGIC: Cranial nerves 2 through 12 grossly intact. Motor strength is 5/5 in both upper and lower extremities in all muscle groups tested. Gait was not tested. LABORATORY DATA: Pathology from his humerus biopsy showed squamous cell carcinoma. CBC on 03/29/2019 revealed a white blood cell count of 4600 with hemoglobin of 8.8, hematocrit 26.8, and platelet count of 147,000. Chemistry group showed fairly normal electrolytes. Albumin was 2.7. Liver function tests were normal. RADIOLOGIC: His MRI of the brain and bone scan and plain film x-rays of the humerus were all personally reviewed. MRI of the brain was negative for metastasis. Bone scan showed uptake in the mid right humerus as well as in the left proximal and mid humerus. Plain film x-rays show a larger lytic lesion involving the proximal left humerus and mid humerus. There was a lytic lesion also in the mid right humerus. ASSESSMENT: Mr. 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 PLAN: I had a discussion today with Mr. Valencia regarding his diagnosis, prognosis, prognostic factors, and treatment options. Dr. Knight has ordered some molecular profiling on his cancer to help determine his systemic therapy. The main portion of his treatment will be systemic treatment with chemotherapy and possibly immunotherapy. He has undergone prophylactic nailing of his left humerus to prevent pathological fracture. He also has a lytic lesion in the right humerus. I would recommend radiation therapy to both his right and left humerus. Obviously, he will need to heal from his recent surgery before we could begin radiation therapy to his left humerus. However, we could begin radiation therapy to the right humerus once he is back on his feet and able to transport himself daily for outpatient treatment. I have made this recommendation to Mr. Valencia. The logistics of radiation as well as the benefits and risk of treatment were discussed. The simulation and daily treatment procedure were discussed. Side effects would include, but not be limited to skin reaction, fatigue, lower blood counts, hair loss, and small risk of swelling of either extremity. Time was taken to answer all of his questions regarding his treatment options. He is tentatively agreeable to proceed with radiation is recommended to him. We will make arrangements as an outpatient for him to return and possibly begin his radiation therapy. This could even be done concurrently with chemotherapy if necessary. Thank you for this interesting consultation. Job ID: [id number] [facility]
--- NOTE | 2019-04-01 14:13 | PRG ---
DATE OF SERVICE: 04/01/2019 SUBJECTIVE: Khang Valencia is doing well today. He had upper GI, had slow gastric emptying, but on followup films it did empty. Followup films this morning reveal complete emptying. He had a bowel movement last night. OBJECTIVE: VITAL SIGNS: Temperature 98.2 degrees, pulse 67, and blood pressure 109/72. LUNGS: Clear to auscultation. CARDIAC: Regular rate and rhythm without murmur or gallop. ABDOMEN: Soft and nontender. Surgical wound looks good. ASSESSMENT AND PLAN: Seven days status post laparotomy, pyloroplasty for perforated duodenal ulcer. We would place him on PPIs. We advanced his diet to full liquids as he tolerated clear liquids last night. I have spoken with him about slowly advancing his diet as tolerated. We will plan discharge home hopefully in 24 hours on full liquids, avoiding fiber salads and difficult to chew and digest meats initially, progressing slowly over the next few days to a week. He should avoid NSAIDs. He should take PPI daily. Dr. Bustillos is covering and he should follow up in my office in a week or two. We will plan to remove his farhan prior to discharge. Plan discharge home on Tylenol and Ultram, avoiding NSAIDs. He may need hydrocodone, which I will write in case he needs it. Dr. Bustillos will see him tomorrow and hopefully be able to discharged home tomorrow. Job ID: [id number]
[2019-04-01] MEDS ORDERED: Gabapentin 300 MG CAP PO SCH (21:00)
[2019-04-01] MEDS ORDERED: Amoxicillin/Potassium Clav 875 MG TAB PO SCH (21:00)
== END 2019-04-01 15:10 | disposition home or self-care (01) | DRG 327 ==
LOC: ONC/OP 10:21 → SURG A 15:43
PROVIDERS: ADMIT Specialist; ATTEND Specialist
PROC: 0DU707Z Supplement Stomach, Pylorus with Autologous Tissue Substitute, Open Approach (ICD-10-PCS; principal; 2019-03-25)
PROC: 0BDJ8ZX Extraction of Left Lower Lung Lobe, Via Natural or Artificial Opening Endoscopic, Diagnostic (ICD-10-PCS; 2019-03-25)
PROC: 0PHD06Z Insertion of Intramedullary Internal Fixation Device into Left Humeral Head, Open Approach (ICD-10-PCS; 2019-03-29)
PROC: 0PBD0ZX Excision of Left Humeral Head, Open Approach, Diagnostic (ICD-10-PCS; 2019-03-29)
DX: K26.6 Chronic or unspecified duodenal ulcer with both hemorrhage and perforation (principal); K56.7 Ileus, unspecified; C34.32 Malignant neoplasm of lower lobe, left bronchus or lung; C79.51 Secondary malignant neoplasm of bone; M84.522A Pathological fracture in neoplastic disease, left humerus, initial encounter for fracture; J44.9 Chronic obstructive pulmonary disease, unspecified; D64.9 Anemia, unspecified; F17.210 Nicotine dependence, cigarettes, uncomplicated
CPT/HCPCS: 36415; 70553; 74019; 74250; 76000; 78306; 80048; 80053; 85025; 85610; 87070; 87102; 87116; 87205; 87206; 88112; 88307; 88331; 88334; A9503; A9577; C1713; C1769; C9113; J0131; J0690; J1200; J1650; J2001; J2175; J2270; J2274; J2405; J2543; J2704; J3010; J3490; J7070; Q9963; S0020

== ENCOUNTER 2019-04-02 07:46 | Emergency (ER) | payer OTHER ==
[2019-04-02] MEDS ORDERED: Diltiazem 125 MG/25 ML ONE (08:16)
[2019-04-02] MEDS ORDERED: Ondansetron PF 4 MG/2 ML Vial ONE (08:19)
[2019-04-02] MEDS ORDERED: Morphine 4 MG/ML VIAL ONE (08:19)
[2019-04-02] MEDS ORDERED: Norepinephrine 4 MG/4 ML VIAL ONE (08:27)
[2019-04-02 08:45] LABS: ALT (SGPT) 13 U/L (8-55); AST (SGOT) 18 U/L (5-34); Albumin 3.2 g/dL (3.5-5.0); Alkaline Phosphatase 74 U/L (40-150); Anion Gap 12 mmol/L (10-20); BUN (Urea Nitrogen) 6 mg/dL (8.9-20.6); Bilirubin, Total 0.5 mg/dL (0.2-1.2); Calc. Creatinine Clearance 0 mL/min (70-130); Calcium 8.9 mg/dL (7.8-10.44); Carbon Dioxide 30 mmol/L (22-29); Chloride 98 mmol/L (98-107); Estimated GFR-MDRD Greater than 90; Globulin 2.3 g/dL (2.4-3.5); Glucose 110 mg/dL (70-105); Potassium 3.5 mmol/L (3.5-5.1); Protein, Total 5.5 g/dL (6.0-8.3); Sodium 136 mmol/L (136-145)
[2019-04-02 08:46] LABS: #Lymphocytes 0.3 thou/uL (1.20-3.40); #Monocytes 0.3 thou/uL (0.11-0.59); #Neutrophils 3.7 thou/uL (1.40-6.50); %Eosinophils 0.6 % (0.0-10.0); %Lymphocytes 7.6 % (21.0-51.0); %Monocytes 6.1 % (0.0-10.0); %Neutrophils 85.7 % (42.0-75.0); Mean Corpuscular Hemoglobin 35.2 pg (27.0-31.0); Mean Platelet Volume 10.7 fL (7.4-10.4); Platelet Count 159 thou/uL (130-400); RBC Distribution Width 15.7 % (11.5-14.5); Red Blood Cell (RBC) Count 2.56 mill/uL (4.70-6.10); White Blood Cell (WBC) Count 4.3 thou/uL (4.8-10.8)
[2019-04-02 09:38] LABS: Bilirubin Negative (Negative); Blood, Urine Negative (Negative); Clarity Extra Turbid (Clear); Glucose, Urine (Dipstick) Normal (Negative); Leukocyte Negative Leu/uL (Negative); Nitrite Negative (Negative); Protein, Urine (Dipstick) Negative (Neg-Trace); Urobilinogen Normal mg/dL (Less than 2)
--- NOTE | 2019-04-02 10:06 | RAD ---
FRONTAL VIEW CHEST: No prior imaging comparison. FINDINGS: There is a mass-like opacity of the left mid lung with a central lucency indicating a cavitary lesion . Right lung is grossly clear. There is no effusion or pneumothorax identified by the portable fron darren view. Cardiac silhouette is normal in size. IMPRESSION: Left pulmonary cavitary lesion. Recommend pulmonary medicine consultation for further evaluation. POS: [facility]
--- NOTE | 2019-04-02 10:53 | ULT ---
BILATERAL LOWER EXTREMITY VENOUS DOPPLER ULTRASOUND: Date: 04/02/19 COMPARISON: None. HISTORY: Pain, assess for deep venous thrombosis. TECHNIQUE: Multiplanar Marion scale sonographic imaging of the venous structures of bilateral lower extremities ob tained with color flow and spectral analysis. FINDINGS: Bilateral common femoral veins, greater saphenous veins, profunda femoral veins, femoral veins, popli teal veins, and posterior tibial veins are patent. Normal blood flow, augmentation, and compression w ithin the deep venous system bilaterally. No evidence for deep venous thrombosis on either side. IMPRESSION: No evidence for deep venous thrombosis of either lower extremity. POS: [facility]
== END 2019-04-02 10:55 | disposition home or self-care (01) ==
LOC: ERS 07:46
DX: R60.0 Localized edema (principal); F17.210 Nicotine dependence, cigarettes, uncomplicated; Z85.118 Personal history of other malignant neoplasm of bronchus and lung; Z85.830 Personal history of malignant neoplasm of bone
CPT/HCPCS: 36415; 71045; 80053; 81003; 83605; 83880; 84484; 85025; 93005; 93970; 96374; 96375; J2270; J2405

== ENCOUNTER 2019-04-14 08:54 | Day surgery (SDC) | payer OTHER ==
[2019-04-14] MEDS ORDERED: Bupivacaine HCl 0.5%/Epinephrine 1:200,000/PF 30 ml Vial ONE (10:27)
[2019-04-14] MEDS ORDERED: Lidocaine 2% PF 5 ML VIAL ONE (10:27)
[2019-04-14] MEDS ORDERED: Midazolam HCl 2 mg/2 ml Vial ONE (10:43)
[2019-04-14] MEDS ORDERED: Fentanyl 100 MCG/2 ML VIAL ONE (10:43)
[2019-04-14] MEDS ORDERED: ePHEDrine/0.9% NaCl/PF SYRINGE 50 mg/10 ml ONE (10:43)
--- NOTE | 2019-04-14 11:46 | RAD ---
RIGHT HUMERUS 2 VIEWS: Date: 04/14/19 HISTORY: Preop. COMPARISON: Radiograph dated 03/25/19. FINDINGS: The lytic lucency of the mid humeral metaphysis has increased its osteolysis with erosion, permeative , of the cortex and medullary cavity. Patient is at high risk for a pathologic fracture. There is als o new lucency of the proximal humeral metadiaphysis. IMPRESSION: 1. Progressive erosion of the mid diaphyseal lytic mass with high risk for pathologic fracture anna rning for metastasis. 2. New erosion of the proximal humeral metadiaphysis with endosteal scalloping, also likely concerni ng for metastasis. Multifocal osteomyelitis is also a possibility. POS: [facility]
--- NOTE | 2019-04-14 12:22 | RAD ---
SINGLE VIEW CHEST: Date: 04/14/19 COMPARISON: 04/02/19. HISTORY: Status post MediPort placement. FINDINGS: Single view of the chest shows a normal sized cardiomediastinal silhouette. A left lung mass is again seen, unchanged. A right-sided MediPort is seen with its tip in the superior vena cava. No pneumotho rax is seen. IMPRESSION: 1. Status post MediPort placement without evidence of complication. 2. Left lung mass. POS: [facility]
--- NOTE | 2019-04-14 16:18 | CON ---
DATE OF CONSULTATION: CHIEF COMPLAINT: Right shoulder pain. HISTORY OF PRESENT ILLNESS: Mr. Valencia is a 43-year-old male, who has presented recently over the last several weeks with metastatic cancer. It appears that he has squamous cell carcinoma. He has lesions in bilateral humeri. He underwent intramedullary nail of the left humerus 2 weeks ago. He has been having increased pain in the right arm, however. He has difficulty elevating the arm. He reports having 8/10 pain. He has very limited function of the arms. New x-ray today has shown progression of his lesion with severe thinning of the bony cortex. He has had no new injury or fall. He is here today in the hospital to receive MediPort in the operating room. PAST MEDICAL HISTORY: Includes recent diagnosis of carcinoma, which is metastatic unfortunately. He denies other previous medical problems. PAST SURGICAL HISTORY: Left humeral nail. ALLERGIES: NO KNOWN DRUG ALLERGIES. SOCIAL HISTORY: The patient has smoked cigarettes. He denies alcohol use or drug use. FAMILY MEDICAL HISTORY: Noncontributory. REVIEW OF SYSTEMS: Positive for right and left arm and shoulder pain. PHYSICAL EXAMINATION: VITAL SIGNS: Stable. He is alert and oriented. No apparent distress. RESPIRATORY: Breathing comfortably. ABDOMEN: Soft, nontender, and nondistended. MUSCULOSKELETAL: The patient's right upper extremity has pain with motion. He can elevate only to 65 degrees. He has weakness in the shoulders bilaterally. His left shoulder has healing wound without any drainage or erythema. The patient has a thin appearance. DIAGNOSTIC STUDIES: X-rays of the right humerus demonstrate a large lesion at the midshaft. There may be a smaller lesion more proximally. There is near-complete loss of the bony cortex at the lesion at the humerus. No obvious fracture yet. IMPRESSION: Metastatic carcinoma, squamous. PLAN: At this point, the patient will need to have his right humerus stabilized. He has severe thinning of the cortex and this appears to be progressing rapidly. I think he has an impending fracture. We will plan to bring him back to the operating room on Friday for intramedullary nail of the humerus. He is aware of risks and benefits. He wants to proceed with this. Job ID: [id number]
[2019-04-14] MEDS ORDERED: Lidocaine 1% PF 5 ML VIAL ONE (17:41)
[2019-04-14] MEDS ORDERED: PROPOFOL 200 MG/20 ML VIAL ONE (17:41)
--- NOTE | 2019-04-14 17:58 | OP ---
DATE OF PROCEDURE: 04/14/2019 PREOPERATIVE DIAGNOSES: Metastatic lung cancer with pathological lytic lesions in right and left humerus, status post open reduction and internal fixation of left humerus and status post perforated ulcer closure, needing antineoplastic chemotherapy access. POSTOPERATIVE DIAGNOSES: Metastatic lung cancer with pathological lytic lesions in right and left humerus, status post open reduction and internal fixation of left humerus and status post perforated ulcer closure, needing antineoplastic chemotherapy access. PROCEDURE PERFORMED: Right subclavian vein low-profile MediPort. ANESTHESIA: General LMA (pain control issues), local of 0.5% Marcaine with epinephrine 30 mL mixed with 2% Xylocaine 10 mL. Fluoroscopy was used. DESCRIPTION OF PROCEDURE: The patient was taken to the operating room, where under LMA anesthesia, chest and neck were prepared with ChloraPrep and draped in routine fashion. Local anesthetic was infiltrated in the skin and subcutaneous tissue about the operative site. Infraclavicular approach was used to cannulate the right subclavian vein placing the J-wire and removing the trocar catheter. Skin incision site was enlarged sharply and carried down through skin and subcutaneous tissue to create a subcutaneous pocket for the MediPort. Dilator and Peel-Away sheath were placed over the J-wire into the superior vena cava. Dilator and J-wire were removed. Catheter was placed over the Peel-Away sheath. Peel-Away sheath was removed. Catheter tip was placed in optimal position in the superior vena cava under fluoroscopic visualization, and catheter was tailored to length, connected to the MediPort placed in the subcutaneous pocket, and secured with 2 interrupted sutures of 3-0 Prolene. Subcutaneous tissue was approximated with 3-0 Monocryl, skin with subdermal 4-0 Monocryl, and [place] glue was applied. The MediPort was accessed with a Hayden needle aspirating blood and flushed with heparinized saline solution. Final fluoroscopic images revealed good line and MediPort placement. Job ID: [id number]
== END 2019-04-15 14:15 | disposition home or self-care (01) ==
LOC: SDC 08:54
PROVIDERS: ATTEND Specialist
PROC: 0JH63WZ Insertion of Totally Implantable Vascular Access Device into Chest Subcutaneous Tissue and Fascia, Percutaneous Approach (ICD-10-PCS; principal; 2019-04-14)
DX: C34.90 Malignant neoplasm of unspecified part of unspecified bronchus or lung (principal); C79.51 Secondary malignant neoplasm of bone; Z87.891 Personal history of nicotine dependence; Z79.899 Other long term (current) drug therapy
CPT/HCPCS: 71045; C1788; J0670; J0690; J1642; J2001; J2250; J2704; J3010

== ENCOUNTER 2019-04-19 10:27 | Day surgery (SDC) | payer OTHER ==
[2019-04-16 15:42] VITALS: BMI 20.3
[2019-04-19] MEDS ORDERED: Fentanyl 250 MCG/5 ML VIAL ONE (12:03)
[2019-04-19 12:09] LABS: Hemoglobin 7.2 g/dL (14.0-18.0); Mean Corpuscular HGB CONC 33.6 g/dL (32.0-36.0); Mean Corpuscular Hemoglobin 34.1 pg (27.0-31.0); Mean Platelet Volume 11.1 fL (7.4-10.4); Platelet Count 133 thou/uL (130-400); Red Blood Cell (RBC) Count 2.12 mill/uL (4.70-6.10); White Blood Cell (WBC) Count 4.3 thou/uL (4.8-10.8)
[2019-04-19 12:19] LABS: Anion Gap 14 mmol/L (10-20); BUN (Urea Nitrogen) 13 mg/dL (8.9-20.6); Calc. Creatinine Clearance 90 mL/min (70-130); Calcium 10.7 mg/dL (7.8-10.44); Carbon Dioxide 26 mmol/L (22-29); Chloride 100 mmol/L (98-107); Estimated GFR-MDRD 87; Glucose 99 mg/dL (70-105); Potassium 4.5 mmol/L (3.5-5.1); Sodium 135 mmol/L (136-145)
[2019-04-19] MEDS ORDERED: Midazolam HCl 2 mg/2 ml Vial ONE (12:19)
[2019-04-19] MEDS ORDERED: PROPOFOL 200 MG/20 ML VIAL ONE (13:43)
[2019-04-19] MEDS ORDERED: Ondansetron PF 4 MG/2 ML Vial ONE (13:43)
[2019-04-19] MEDS ORDERED: Glycopyrrolate 0.2 MG/ML 5 ML SYRINGE ONE (13:43)
[2019-04-19] MEDS ORDERED: Rocuronium Bromide 10 MG/ML (10ML VIAL) ONE (13:43)
[2019-04-19] MEDS ORDERED: Lidocaine 1% PF 5 ML VIAL ONE (13:43)
[2019-04-19] MEDS ORDERED: Bupivacaine HCl 0.5%/Epinephrine 1:200,000/PF 30 ml Vial ONE (13:50)
[2019-04-19] MEDS ORDERED: Meperidine HCl/PF 25 MG/ML VIAL ONE (14:19)
--- NOTE | 2019-04-19 14:19 | RAD ---
INTRAOPERATIVE FLUOROSCOPIC VIEWS RIGHT HUMERUS: CLINICAL HISTORY: ORIF right humerus. FINDINGS: There is intramedullary elke segmentally visualized traversing the lytic region of the right humerus, where a pathologic fracture is visualized. IMPRESSION: Intraoperative fracture fixation of pathologic fracture of right humerus. Transcribed Date/Time: 04/19/2019 2:55 PM
[2019-04-19] MEDS ORDERED: Fentanyl 100 MCG/2 ML VIAL ONE (14:33)
[2019-04-19] MEDS ORDERED: HYDROcodone/Acetaminophen 5/325 mg Tablet ONE (15:31)
[2019-04-19] MEDS ORDERED: Morphine 2 MG/ML SYRINGE ONE (15:35)
--- NOTE | 2019-04-19 20:52 | OP ---
DATE OF PROCEDURE: 04/19/2019 PROCEDURE PERFORMED: Internal fixation including intramedullary nail of right pathologic fracture to humerus. PREOPERATIVE DIAGNOSIS: Right humerus pathologic lesion with impending fracture. POSTOPERATIVE DIAGNOSIS: Right humerus pathologic lesion with impending fracture. COMPLICATIONS: None. ESTIMATED BLOOD LOSS: Minimal. IMPLANT: Synthes short humeral intramedullary nail with locking screws. INDICATIONS: Mr. Valencia is a 43-year-old male who has developed metastatic cancer. He has undergone intramedullary nail stabilization of his left humerus and now has a large lesion eroding the right humerus. He has been indicated for intramedullary nail fixation of the right humerus to restore stability of the arm and hopefully provide pain relief. Risks have been reviewed in detail. He has elected to proceed with the operation. DESCRIPTION OF PROCEDURE: Mr. Valencia was identified in the preoperative holding area. His correct extremity was marked. He was carried to the operating room. He was positioned supine. General anesthesia was induced. A multidisciplinary time-out was performed. The right upper extremity was prepped and draped in sterile fashion. We began the procedure with an incision over the shoulder. We dissected down through the subcutaneous tissues to the deltoid fascia, which was opened. This allowed access to the rotator cuff. We made a small split in the rotator cuff. We then inserted a guidewire into the humerus. We over-reamed the guidewire. Next, we placed our ball-tipped guidewire distally into the humerus. We measured this for a 260-mm length. At this point, we reamed over the guidewire. We then inserted our 9 mm x 260 mm humeral nail. We placed screws proximally as well as screws distally locking the nail. We took final x-ray images in orthogonal planes. We thoroughly irrigated with copious lavage. We then closed the wounds appropriately in layers including the rotator cuff. The patient was taken to the recovery room in good condition. Job ID: [id number]
== END 2019-04-19 18:14 | disposition home or self-care (01) ==
LOC: SDC 10:27
PROVIDERS: ATTEND Orthopaedic Surgery
PROC: 0PHF06Z Insertion of Intramedullary Internal Fixation Device into Right Humeral Shaft, Open Approach (ICD-10-PCS; principal; 2019-04-19)
DX: M84.521A Pathological fracture in neoplastic disease, right humerus, initial encounter for fracture (principal); C80.1 Malignant (primary) neoplasm, unspecified; F17.210 Nicotine dependence, cigarettes, uncomplicated
CPT/HCPCS: 76000; 80048; 85027; C1713; C1769; J0670; J0690; J1642; J2001; J2175; J2250; J2270; J2405; J2704; J3010

== ENCOUNTER 2019-04-22 09:39 | Day surgery (SDC) | payer OTHER ==
[2019-04-22] MEDS ORDERED: diphenhydrAMINE 25 MG CAP PO SCH (11:00)
[2019-04-22] MEDS ORDERED: Acetaminophen 500 MG TAB PO SCH (11:00)
[2019-04-22] MEDS ORDERED: HYDROcodone/Acetaminophen 10/325 mg Tablet PO SCH (12:00)
[2019-04-22 16:42] VITALS: BP 126/60; TEMP 98.9
[2019-04-23] MEDS ORDERED: Prevnar 13-Val Conj/PF 0.5 ML SYRINGE IM ONE (12:15)
== END 2019-04-22 17:02 | disposition home or self-care (01) ==
LOC: ONC/OP 09:39
PROVIDERS: ATTEND Nurse Practitioner Acute Care
PROC: 30233N1 Transfusion of Nonautologous Red Blood Cells into Peripheral Vein, Percutaneous Approach (ICD-10-PCS; principal; 2019-04-22)
DX: D64.9 Anemia, unspecified (principal); D69.6 Thrombocytopenia, unspecified
CPT/HCPCS: 36430; 86850; 86900; 86901; J1642; P9016; Q0163

== ENCOUNTER 2019-05-11 10:08 | Day surgery (SDC) | payer OTHER, SELFPAY ==
[2019-05-11] MEDS ORDERED: diphenhydrAMINE 25 MG CAP PO SCH (10:45)
[2019-05-11] MEDS ORDERED: Acetaminophen 500 MG TAB PO SCH (10:45)
[2019-05-11] MEDS ORDERED: Sodium Chloride 0.9% 40 ML ONE (10:45)
[2019-05-11 11:45] VITALS: TEMP 98.7
[2019-05-11 14:44] LABS: Hemoglobin 8.7 g/dL (14.0-18.0)
[2019-05-11 15:19] VITALS: BP 135/80
== END 2019-05-11 15:19 | disposition home or self-care (01) ==
LOC: ONC/OP 10:08
PROVIDERS: ATTEND Internal Medicine Hematology & Oncology
PROC: 30233N1 Transfusion of Nonautologous Red Blood Cells into Peripheral Vein, Percutaneous Approach (ICD-10-PCS; principal; 2019-05-11)
DX: D64.9 Anemia, unspecified (principal)
CPT/HCPCS: 36430; 85014; 85018; 86850; 86900; 86901; J1642; P9016; Q0163

== ENCOUNTER 2019-06-09 09:33 | Day surgery (SDC) | payer OTHER ==
[2019-06-09] MEDS ORDERED: Sodium Chloride 0.9% 20 ML ONE (09:48)
[2019-06-09] MEDS ORDERED: diphenhydrAMINE 25 MG CAP PO SCH (10:15)
[2019-06-09] MEDS ORDERED: Acetaminophen 500 MG TAB PO SCH (10:15)
[2019-06-09] MEDS ORDERED: Sodium Chloride 0.9% 30 ML ONE (10:26)
[2019-06-09 16:00] VITALS: BP 164/80; TEMP 98
== END 2019-06-09 16:01 | disposition home or self-care (01) ==
LOC: ONC/OP 09:33
PROVIDERS: ATTEND Internal Medicine Hematology & Oncology
PROC: 30233N1 Transfusion of Nonautologous Red Blood Cells into Peripheral Vein, Percutaneous Approach (ICD-10-PCS; principal; 2019-06-09)
PROC: 30233R1 Transfusion of Nonautologous Platelets into Peripheral Vein, Percutaneous Approach (ICD-10-PCS; principal; 2019-06-09)
DX: D64.9 Anemia, unspecified (principal); D69.6 Thrombocytopenia, unspecified
CPT/HCPCS: 36430; 86850; 86900; 86901; J1642; P9016; Q0163

== ENCOUNTER 2019-06-22 10:45 | Outpatient (CLI) | payer OTHER ==
--- NOTE | 2019-06-22 11:28 | RAD ---
EXAM: 2 views of the right femur HISTORY: Lung cancer with bone metastases COMPARISON: Bone scan 03/26/2019 FINDINGS: There is no evidence of acute fracture or dislocation. No soft tissue swelling is seen. No degenerative changes are seen in the hip. IMPRESSION: No evidence of acute osseous abnormality.
--- NOTE | 2019-06-22 11:30 | RAD ---
EXAM: 2 views of the left femur HISTORY: Lung cancer with bone metastases COMPARISON: Bone scan 03/26/2019 FINDINGS: There is no evidence of acute fracture or dislocation. No soft tissue swelling is seen. No degenerative changes are seen in the hip. IMPRESSION: No evidence of acute osseous abnormality.
== END 2019-06-22 10:46 | disposition home or self-care (01) ==
LOC: BICRAD 10:45
PROVIDERS: ATTEND Internal Medicine Hematology & Oncology
DX: C79.51 Secondary malignant neoplasm of bone (principal); C34.90 Malignant neoplasm of unspecified part of unspecified bronchus or lung

== ENCOUNTER 2019-06-30 10:19 | Day surgery (SDC) | payer OTHER ==
[2019-06-30] MEDS ORDERED: Acetaminophen 500 MG TAB PO PRN (11:24)
[2019-06-30] MEDS ORDERED: diphenhydrAMINE 25 MG CAP PO PRN (11:24)
[2019-06-30 16:21] LABS: Hemoglobin 6.3 g/dL (14.0-18.0)
[2019-06-30 17:03] VITALS: BP 131/62; TEMP 98.4
== END 2019-06-30 19:10 ==
LOC: ONC/OP 10:19 → ONC 10:43 → ONC/OP 19:10
PROVIDERS: ATTEND Internal Medicine Hematology & Oncology
PROC: 30233N1 Transfusion of Nonautologous Red Blood Cells into Peripheral Vein, Percutaneous Approach (ICD-10-PCS; principal; 2019-06-30)
DX: D64.9 Anemia, unspecified (principal); D69.6 Thrombocytopenia, unspecified
CPT/HCPCS: 36430; 36591; 85014; 85018; 86850; 86900; 86901; P9016; Q0163

== ENCOUNTER 2019-07-29 09:27 | Day surgery (SDC) | payer OTHER ==
[2019-07-29] MEDS ORDERED: Acetaminophen 500 MG TAB PO PRN (09:50)
[2019-07-29] MEDS ORDERED: diphenhydrAMINE 25 MG CAP PO PRN (09:51)
[2019-07-29] MEDS ORDERED: Sodium Chloride 0.9% 20 ML ONE (10:44)
[2019-07-29 16:26] VITALS: BP 135/63; TEMP 98.8
== END 2019-07-29 16:26 | disposition home or self-care (01) ==
LOC: ONC/OP 09:27
PROVIDERS: ATTEND Internal Medicine Hematology & Oncology
PROC: 30233N1 Transfusion of Nonautologous Red Blood Cells into Peripheral Vein, Percutaneous Approach (ICD-10-PCS; principal; 2019-07-29)
DX: D64.9 Anemia, unspecified (principal); D69.6 Thrombocytopenia, unspecified
CPT/HCPCS: 36430; 86850; 86900; 86901; P9016; Q0163

== ENCOUNTER 2019-08-11 08:04 | Outpatient (CLI) | payer OTHER ==
[2019-08-11 08:41] LABS: Estimated GFR-MDRD - POC Greater than 90
--- NOTE | 2019-08-11 09:27 | CT ---
CT THORAX WITH CONTRAST: DATE: 08/11/2019 HISTORY: 43-year-old male with ICD-10: C 34.32 malignant neoplasm of lower lobe, left bronchus or lung. "Lung cancer with metastases to bone C 79.51. " "Compare with prior: Yes [facility] date: 2018" COMPARISON: There are no prior CT's available on [facility] P[facility]. FINDINGS: 1.1 x 1.8 x 1.4 cm osteolytic lesion at right lateral upper portion of T11 vertebral body. 1.8 x 1.8 x 1.7 cm osteolytic lesion at right anterior L1 vertebral body. Large, approximately 6.5 x 8 x 6 cm left superior segment lower lobe pulmonary mass containing large central cavitation, contiguous with and inseparable from left hilum. Adjacent small left posterior pleural effusion abutting the mass, apparently loculated, because it do es not extend inferiorly to the most dependent portion of left posterior lower lung zone. 3.3 x 3.3 x 3 cm malignant metastatic lymph node at aortopulmonary window. 3 x 2 x 3 cm right malignant mediastinal lymph node anterior to right mainstem bronchus. Additional chain of much smaller suspicious right paratracheal lymph node superior to that. Numerous noncalcified pulmonary nodules in bilateral upper lobes and bilateral lower lobes. They are greater in number in the bilateral upper lobes. The largest one is at the medial basilar segment of left lower lobe, measuring approximately 1.4 x 1.4 x 1.7 cm. 1.8 x 1.8 x 2 cm moderately low density lesion at medial aspect of right lobe of liver near junction between hepatic segments 6 and 7, consistent with metastatic lesion. Tiny 0.7 cm low-density lesion with faint halo of enhancement in hepatic segment 8 near the dome of liver, probably another metastas is. Similar-appearing 0.8 cm lesion in hepatic segment 7 at dome of liver. Normal thoracic aorta and heart. No pneumothorax or pulmonary edema. Right subclavian implantable vas cular access port with distal tip at upper right atrium.. IMPRESSION: 1) lung cancer with pulmonary, skeletal, mediastinal, and hepatic metastatic disease. 2) large cavitary primary lung cancer at superior segment left upper lobe 3) multiple bilateral pulmonary metastases. 4) several hepatic metastases. 5) at least 2 osteolytic bone metastases in the spine, at T11 and L1. 6) malignant mediastinal lymphadenopathy.
--- NOTE | 2019-08-11 12:58 | NM ---
NUCLEAR MEDICINE BONE SCAN WHOLE BODY: (Skeletal scintigraphy) DATE: 08/11/2019 HISTORY: 43-year-old male with metastatic lung cancer. COMPARISON: 03/26/2019 TECHNIQUE: IV injection of technetium 99m-[id number]: 30.0 mCi 3 hour delayed whole body skeletal scintigraphy in anterior and posterior views. FINDINGS: The known 2 osteolytic lesions involving the T11 and L1 vertebral bodies, demonstrated on today's yusra st CT, do not have increased uptake on this bone scan, perhaps because they are purely osteolytic. Previously demonstrated focus of increased uptake in the right humeral mid shaft is again demonstrate d. Superior to that, new smaller focus of increased uptake in the right proximal humeral shaft. The previously demonstrated lesions in the left humeral surgical neck and proximal shaft have signifi cantly decreased uptake on the current study. No other suspicious foci of increased uptake. IMPRESSION: 1. The known 2 osteolytic lesions involving the T11 and L1 vertebral bodies, demonstrated on today's chest CT, do not have increased uptake on this bone scan, perhaps because they are purely osteolytic. 2. Evolution of findings regarding the known bilateral humeral shaft metastatic lesions. 3. apparently new small metastatic focus in the right proximal humeral shaft.
[2019-08-11] MEDS ORDERED: Iopamidol 370 76% 100 ML VIAL ONE (15:44)
== END 2019-08-11 08:05 | disposition home or self-care (01) ==
LOC: CT 08:04
PROVIDERS: ATTEND Internal Medicine Hematology & Oncology
DX: C34.32 Malignant neoplasm of lower lobe, left bronchus or lung (principal); C79.51 Secondary malignant neoplasm of bone; C78.7 Secondary malignant neoplasm of liver and intrahepatic bile duct; R59.0 Localized enlarged lymph nodes; M89.9 Disorder of bone, unspecified
CPT/HCPCS: 71260; 78306; 82565; A9503; Q9967

== ENCOUNTER → 2019-08-13 | Day surgery (SDC) | payer OTHER ==
[~2019-08-13] MED LIST: Acetaminophen 500 MG TAB PO SCH; Sodium Chloride 0.9% 30 ML ONE; diphenhydrAMINE 25 MG CAP PO SCH
[2019-08-13 16:24] VITALS: BP 130/64; TEMP 100.5
== END ==
LOC: ONC/OP 09:38
PROVIDERS: ATTEND Internal Medicine Hematology & Oncology
PROC: 30233N1 Transfusion of Nonautologous Red Blood Cells into Peripheral Vein, Percutaneous Approach (ICD-10-PCS; principal; 2019-08-13)
DX: D64.9 Anemia, unspecified (principal); D69.6 Thrombocytopenia, unspecified
CPT/HCPCS: 36430; 86850; 86900; 86901; J1642; P9016; Q0163

== ENCOUNTER 2019-09-18 20:02 | Inpatient (IN) | payer OTHER ==
[2019-09-18] MEDS ORDERED: Ondansetron PF 4 MG/2 ML Vial IVP PRN (20:54)
[2019-09-18] MEDS ORDERED: Scopolamine 1.5 mg/72 hour Patch TOP PRN ×2 (20:54)
[2019-09-18] MEDS ORDERED: Morphine 10 MG/0.5 ML ORAL SYRINGE SL PRN (21:02)
[2019-09-18] MEDS: Lorazepam 2 MG/ML VIAL SLOW IVP PRN (21:26)
[2019-09-18 22:35] VITALS: BMI 16.9
[2019-09-19] MEDS: Morphine 4 MG/ML VIAL SLOW IVP PRN ×3 (00:15→05:02)
[2019-09-19] MEDS: Lorazepam 2 MG/ML VIAL SLOW IVP PRN ×5 (00:15→11:00)
[2019-09-19] MEDS: Morphine 2 MG/ML SYRINGE SLOW IVP PRN (16:02)
[2019-09-19 16:50] VITALS: BP 103/58; TEMP 100.5
[2019-09-20] MEDS: Lorazepam 2 MG/ML VIAL SLOW IVP PRN ×4 (00:54→12:57)
[2019-09-20] MEDS: Morphine 2 MG/ML SYRINGE SLOW IVP PRN (01:42)
[2019-09-20] MEDS: Morphine 4 MG/ML VIAL SLOW IVP PRN ×4 (03:50→12:58)
[2019-09-20] MEDS ORDERED: fentaNYL 100 mcg/hour Patch TD SCH (09:00)
== END 2019-09-20 14:04 | disposition expired | DRG 951 ==
LOC: ONC 20:02
PROVIDERS: ADMIT Family Medicine; ATTEND Family Medicine
DX: Z51.5 Encounter for palliative care (principal); D61.810 Antineoplastic chemotherapy induced pancytopenia; R04.2 Hemoptysis; D62 Acute posthemorrhagic anemia; C34.90 Malignant neoplasm of unspecified part of unspecified bronchus or lung; C79.51 Secondary malignant neoplasm of bone; R50.81 Fever presenting with conditions classified elsewhere; D69.6 Thrombocytopenia, unspecified; E83.52 Hypercalcemia; Z98.890 Other specified postprocedural states; Z80.1 Family history of malignant neoplasm of trachea, bronchus and lung; Z87.891 Personal history of nicotine dependence
CPT/HCPCS: J2060; J2270; J2405